=== PATIENT | female | born 1980 | race Caucasian/White ===

== ENCOUNTER → 2016-08-20 | Outpatient (CLI) | payer OTHER ==
--- NOTE | 2016-08-20 16:58 | US ---
Venous Doppler Study of Left Lower Extremity Clinical Indications: Left lower extremity swelling. Technique: High-frequency transducer was used for imaging and Doppler study of the deep veins of the leg from the upper calf to the groin. Pulsed Doppler and color Doppler were utilized, along with va rious maneuvers, to assess flow in the deep veins. Findings: The deep veins of the groin, thigh, knee, and upper calf are well displayed and are normal ly compressible. Doppler flow patterns are unremarkable. There is no evidence of deep venous thromb osis. There is normal compression of the greater saphenous vein without superficial thrombosis. The right common femoral vein is patent, competent, and compressible. Impression: No evidence of deep vein thrombosis in the left leg. A page was placed to Dr. Figueroa at time of completion of dictation. I am awaiting a return call.
== END ==
LOC: FIMAGING 15:51
PROVIDERS: ATTEND Obstetrics & Gynecology
DX: M79.89 Other specified soft tissue disorders (principal)

== ENCOUNTER 2016-08-30 05:30 | Inpatient (IN) | payer OTHER ==
[2016-08-30] MEDS ORDERED: LR 500 ML IV ONE (05:58)
[2016-08-30] MEDS ORDERED: ceFAZolin 2 GM/DEXTROSE 100 ML IV ONE ×2 (05:58→07:00)
[2016-08-30] MEDS ORDERED: CITRIC ACID/SODIUM CITRATE 30 ML UDCUP PO ONE (05:58)
[2016-08-30] MEDS ORDERED: LR 1,000 ML IV SCH (06:00)
[2016-08-30 06:41] LABS: % IMMATURE GRANULYOCYTES 0.4 % (0.0-1.1); ABSOLUTE IMMATURE GRANULOCYTES 0.03 10^3/uL (0.00-0.10); ADD DIFF? NO; ADD MORPH? NO; ADD SCAN? NO; ATYPICAL LYMPHOCYTE FLAG 0 (0-99); FRAGMENT RBC FLAG 20 (0-99); HEMATOCRIT 28.8 % (38.0-47.0); HEMOGLOBIN 8.5 g/dL (12.6-16.3); LEFT SHIFT FLG 0 (0-99); LIPEMIA HEMOLYSIS FLAG 70 (0-99); MEAN CELL HEMOGLOBIN CONCENTR. 29.5 g/dL (32.4-36.7); MEAN CELL VOLUME 71.1 fL (81.5-99.8); MEAN PLATELET VOLUME 11.4 fL (8.7-11.7); PLATELET CLUMPS FLAG 20 (0-99); PLATELET COUNT 298 10^3/uL (150-400); RED BLOOD CELL COUNT 4.05 10^6/uL (4.18-5.33); RED CELL DISTRIBUTION WIDTH 16.6 % (11.5-15.2)
[2016-08-30] MEDS ORDERED: morphINE PF 5 MG/10 ML INJ ONE (07:44)
[2016-08-30] MEDS ORDERED: LIDOCAINE 1% 30 ML SDV ONE (07:55)
[2016-08-30] MEDS ORDERED: MISOPROSTOL 200 MCG TAB ONE (07:56)
[2016-08-30] MEDS ORDERED: OXYTOCIN 10 UNIT/ML VIAL ONE (07:56)
[2016-08-30] MEDS ORDERED: fentaNYL 100 MCG/2 ML INJ ONE ×2 (08:26→08:40)
[2016-08-30] MEDS ORDERED: DOCUSATE SODIUM 100 MG CAP PO PRN (08:52)
[2016-08-30] MEDS ORDERED: SIMETHICONE 80 MG TAB CHEW PO PRN (08:52)
[2016-08-30] MEDS ORDERED: HYDROCODONE/APAP 5/325 TAB PO PRN (08:52)
[2016-08-30] MEDS ORDERED: PROMETHAZINE HCL 25 MG/ML INJ IVP PRN (08:52)
[2016-08-30] MEDS ORDERED: BISACODYL 10 MG SUPP PR PRN (08:53)
[2016-08-30] MEDS ORDERED: POLYETHYLENE GLYCOL 3350 17 GM PKT PO PRN (08:53)
[2016-08-30] MEDS ORDERED: MAGNESIUM HYDROXIDE 30 ML UDCUP PO PRN (08:53)
[2016-08-30] MEDS ORDERED: LACTULOSE 20 GM/30 ML UDCUP PO PRN (08:53)
--- NOTE | 2016-08-30 08:56 | OBPROC ---
- Delivery Pre-op Diagnoses: Primary C/S due to previous traumatic vaginal delivery Post-op Diagnoses: Primary C/S Procedure: Primary Surgeon: Teri Figueroa Nutrition Partner: Snehal Caldwell Anesthesiologist: Gerard Cody Medical Care Evaluation Specialist/TRACK GREASER: Shital Jim Anesthesia: Spinal Complications: None IV Fluid (ml): 1,300 EBL: 800 - Info Infant A Delivery Date: 08/30/16 Delivery Time: 08:24 Sex of Infant: Female Score (1 Min): 8 Score (5 Min): 8
[2016-08-30] MEDS ORDERED: PROPOFOL 200 MG/20 ML VIAL ONE (08:59)
[2016-08-30] MEDS ORDERED: MEPERIDINE 25 MG/ML SYR IVP PRN (09:09)
[2016-08-30] MEDS ORDERED: PHENYLEPHRINE HCL 100 MCG/ML SYR IVP PRN (09:09)
[2016-08-30] MEDS ORDERED: NALOXONE HCL 0.4 MG/ML INJ IVP PRN (09:09)
[2016-08-30] MEDS ORDERED: fentaNYL 100 MCG/2 ML INJ IVP PRN (09:09)
[2016-08-30] MEDS ORDERED: KETOROLAC 30 MG/1 ML SDV ONE (09:12)
[2016-08-30] MEDS: KETOROLAC 30 MG/1 ML SDV IVP SCH ×3 (09:14→22:30)
[2016-08-30] MEDS: SENNOSIDES/DOCUSATE SODIUM TAB PO SCH ×2 (09:26→22:30)
[2016-08-31] MEDS: KETOROLAC 30 MG/1 ML SDV IVP SCH (05:12)
--- NOTE | 2016-08-31 07:59 | SOAPPROG ---
SOAP Progress Note Assessment/Plan: Assessment: 35 y.o. s/p primary elective C/S post-op/ day #1. Recovering well. Incision CDI. Plan: STAT CBC this morning. Begin Iron BID. Routine post-op/ orders. 08/31/16 07:56 Subjective: Reports feeling well with good pain control and minimal vaginal bleeding. Incision with bandage in place is CDI. infant well. Appropriate mood and good support. Objective: Vital Signs Temp Pulse Resp BP Pulse Ox 36.9 C 82 18 99/61 L 93 08/31/16 05:16 08/31/16 05:16 08/31/16 05:16 08/31/16 05:16 08/31/16 01:00 Laboratory Results 08/30/16 06:29 08/30/16 08/31/16 09/01/16 05:59 05:59 05:59 Intake Total 3300 Output Total 1858 100 Balance 1442 -100 - Time Spent With Patient Time Spent With Patient: 20 minutes - Pending Discharge Pending Discharge Within 24 Hours: No Pending Discharge Within 48 Hours: Yes Pending Discharge Date: 09/02/16 Pending Discharge Time: 11:00 Physical Exam - Physical Exam General Appearance: WD/WN, alert, no apparent distress EENT: normal ENT inspection Neck: non-tender, full range of motion Respiratory: lungs clear, normal breath sounds Cardiac/Chest: regular rate, rhythm Abdomen: non-tender, soft Pelvic Exam: normal external exam Rectal: deferred Back: Normal inspection Skin: normal color, warm/dry Extremities: normal range of motion, non-tender Neuro/Psych: alert, normal mood/affect, oriented x 3 ICD10 Worksheet Patient Problems: Problems Problem Status Diagnosed care following delivery Acute - ICD10 Problem Qualifiers (1) care following delivery
[2016-08-31 10:07] LABS: % IMMATURE GRANULYOCYTES 0.4 % (0.0-1.1); ABSOLUTE IMMATURE GRANULOCYTES 0.02 10^3/uL (0.00-0.10); ADD DIFF? NO; ADD MORPH? YES; ADD SCAN? NO; ATYPICAL LYMPHOCYTE FLAG 0 (0-99); FRAGMENT RBC FLAG 20 (0-99); HEMATOCRIT 39.5 % (38.0-47.0); HEMOGLOBIN 11.2 g/dL (12.6-16.3); LEFT SHIFT FLG 0 (0-99); LIPEMIA HEMOLYSIS FLAG 70 (0-99); MEAN CELL HEMOGLOBIN 20.8 pg (27.9-34.1); MEAN CELL VOLUME 73.3 fL (81.5-99.8); MEAN PLATELET VOLUME 10.9 fL (8.7-11.7); PLATELET CLUMPS FLAG 0 (0-99); PLATELET COUNT 126 10^3/uL (150-400); RED BLOOD CELL COUNT 5.39 10^6/uL (4.18-5.33); RED CELL DISTRIBUTION WIDTH 17.3 % (11.5-15.2)
[2016-08-31 10:12] LABS: MEAN CELL HEMOGLOBIN CONCENTR. 28.4 g/dL (32.4-36.7)
[2016-08-31] MEDS: IRON POLYSAC/IRON HEME 28 MG TAB PO SCH ×2 (10:33→21:01)
[2016-08-31] MEDS: SENNOSIDES/DOCUSATE SODIUM TAB PO SCH ×2 (10:34→21:00)
[2016-08-31 10:50] LABS: ELLIPTOCYTES 1+; HYPOCHROMIA 2+; MICROCYTES 2+; PLATELET ESTIMATE ADEQUATE (ADEQ); POLYCHROMASIA 2+
[2016-08-31 10:51] LABS: ACANTHOCYTES 1+; SCHISTOCYTES 1+
[2016-08-31] MEDS: IBUPROFEN 600 MG TAB PO PRN ×2 (12:48→18:58)
[2016-08-31 15:45] LABS: % IMMATURE GRANULYOCYTES 0.5 % (0.0-1.1); ABSOLUTE IMMATURE GRANULOCYTES 0.05 10^3/uL (0.00-0.10); ADD DIFF? NO; ADD MORPH? YES; ADD SCAN? NO; ATYPICAL LYMPHOCYTE FLAG 20 (0-99); FRAGMENT RBC FLAG 20 (0-99); HEMATOCRIT 21.2 % (38.0-47.0); LEFT SHIFT FLG 0 (0-99); LIPEMIA HEMOLYSIS FLAG 70 (0-99); MEAN CELL HEMOGLOBIN 21.6 pg (27.9-34.1); MEAN CELL HEMOGLOBIN CONCENTR. 29.2 g/dL (32.4-36.7); MEAN CELL VOLUME 73.9 fL (81.5-99.8); MEAN PLATELET VOLUME 11.1 fL (8.7-11.7); PLATELET CLUMPS FLAG 40 (0-99); PLATELET COUNT 217 10^3/uL (150-400); RED BLOOD CELL COUNT 2.87 10^6/uL (4.18-5.33); RED CELL DISTRIBUTION WIDTH 16.5 % (11.5-15.2)
[2016-08-31 15:47] LABS: HEMOGLOBIN 6.2 g/dL (12.6-16.3)
[2016-08-31 16:14] LABS: POLYCHROMASIA 2+
[2016-08-31 16:15] LABS: PLATELET ESTIMATE ADEQUATE (ADEQ)
[2016-08-31 16:16] LABS: HYPOCHROMIA 2+; MICROCYTES 2+
[2016-08-31 16:17] LABS: ELLIPTOCYTES 1+
[2016-08-31 22:31] VITALS: RESP 16
[2016-09-01] MEDS: IBUPROFEN 600 MG TAB PO PRN ×2 (01:03→08:13)
[2016-09-01 05:30] LABS: % IMMATURE GRANULYOCYTES 0.7 % (0.0-1.1); ABSOLUTE IMMATURE GRANULOCYTES 0.06 10^3/uL (0.00-0.10); ADD DIFF? NO; ADD MORPH? YES; ADD SCAN? NO; ATYPICAL LYMPHOCYTE FLAG 0 (0-99); FRAGMENT RBC FLAG 20 (0-99); HEMATOCRIT 21.2 % (38.0-47.0); LEFT SHIFT FLG 0 (0-99); LIPEMIA HEMOLYSIS FLAG 70 (0-99); MEAN CELL HEMOGLOBIN 21.1 pg (27.9-34.1); MEAN CELL VOLUME 73.4 fL (81.5-99.8); MEAN PLATELET VOLUME 11.2 fL (8.7-11.7); PLATELET CLUMPS FLAG 0 (0-99); PLATELET COUNT 201 10^3/uL (150-400); RED BLOOD CELL COUNT 2.89 10^6/uL (4.18-5.33); RED CELL DISTRIBUTION WIDTH 16.5 % (11.5-15.2)
[2016-09-01 05:39] LABS: HEMOGLOBIN 6.1 g/dL (12.6-16.3); MEAN CELL HEMOGLOBIN CONCENTR. 28.8 g/dL (32.4-36.7)
[2016-09-01 06:23] LABS: HYPOCHROMIA 2+; MICROCYTES 2+; PLATELET ESTIMATE ADEQUATE (ADEQ); POLYCHROMASIA 1+
[2016-09-01] MEDS: IRON POLYSAC/IRON HEME 28 MG TAB PO SCH (08:13)
[2016-09-01] MEDS: SENNOSIDES/DOCUSATE SODIUM TAB PO SCH (08:13)
--- NOTE | 2016-09-01 08:35 | OBGCSDC ---
General Delivery Information - General Info : 2 Para: 2 Delivery Date: 08/30/16 Delivery Time: 08:24 Delivery Physician/CNM: Teri Figueroa Twisting Frame Fixer: Snehal Caldwell Admission Date: 08/30/16 Labs: Patient ABO/Rh O POSITIVE 08/30/16 06:29 Hct 21.2 % (38.0-47.0) L 09/01/16 04:50 - Frontier Info A Sex of Infant: Female Score (1 Min): 8 Score (5 Min): 8 - Delivery IUP (Weeks): 39 weeks Number of Prior Sections: 0 Indications for Current Section: Other (Specify) Procedures: LTCS Intra-op Complications: None EBL: 800 Anesthesia: Spinal Discharge Information - Discharge Information Discharge Medications: Ibuprofen, Vitamins, Vicodin Complications: anemia Condition: Good Instruction/Follow Up: Two Weeks Discharge Physician/CNM: Snehal Caldwell Discharge Date: 09/01/16 Dictated: No
[2016-09-01 11:40] VITALS: BP 110/67; PULSE 84; TEMP 97.9; O2SAT 100
--- NOTE | 2016-09-01 15:27 | GOP ---
[f rep st] OPERATIVE REPORT DATE OF OPERATION: 08/30/2016 SURGEON: Teri Figueroa MD POWER BALLAST MACHINE OPERATOR: Snehal Caldwell CNM ANESTHESIA: Spinal. PREOPERATIVE DIAGNOSIS: 1. Intrauterine at 39 weeks and 1 day estimated gestational age. 2. History of prior severe vaginal laceration requiring surgical repair. POSTOPERATIVE DIAGNOSIS: 1. Intrauterine at 39 weeks and 1 day estimated gestational age. 2. History of prior severe vaginal laceration requiring surgical repair. PROCEDURE PERFORMED: Primary low transverse section. FINDINGS: 1. Delivered a female infant weighing 2930 g with Apgars of 8 and 8 at 0824 hours. 2. Normal uterus, fallopian tubes, and ovaries bilaterally. SPECIMENS: None. ESTIMATED BLOOD LOSS: 800 cc. INDICATIONS: Patient is a 35-year-old 2, para 1, female with history of a severe vaginal lac eration with her last delivery that required an interval surgical repair. She was offered, and she d esired to proceed with, a primary delivery. DESCRIPTION OF PROCEDURE: The patient was taken to the operating room, where spinal anesthesia was f ound adequate. Patient was prepared and draped in a normal sterile fashion in a dorsal supine positi on with a left tilt. After confirmation of adequate anesthesia, a low transverse skin incision was m taurus and carried down to the level of the fascia in the usual Pfannenstiel method. The incision was i ncised and dissected using Pfannenstiel technique. The peritoneal cavity was opened bluntly and stre tched open. A bladder blade was placed. An incision was made in the vesicouterine peritoneum and ex tended laterally and dissected away digitally. A low transverse uterine incision was made and extended digitally. The baby was delivered atraumatic ally, and noted to have a spontaneous cry. The cord was doubly clamped and cut, and the baby was hill ded off to the waiting nurse practitioner. The placenta was delivered with uterine massage and noted to be intact. The uterus was exteriorized on the maternal abdomen and wiped with a dry lap sponge to remove all residual membranes. The uterine incision was closed with a running locked stit ch of 0 Monocryl. A second layer was placed for imbrication using same suture. The uterine tone was excellent. The posterior cul-de-sac was irrigated with copious amounts of normal saline and noted t o be clear. The uterus was placed back in the maternal abdomen and gutters were wiped with moist lap sponges bilaterally. The uterine incision was reexamined closely, and hemostasis assured. The rect us muscle surfaces and fascial surfaces were examined closely, and hemostasis was obtained with the u se of the Bovie. The fascia was closed with a running nonlocked stitch of #1 PDS. The subcutaneous tissue was irrigated with copious amounts of normal saline, and hemostasis obtained with the use of t he Bovie. The subcutaneous tissue was reapproximated with interrupted stitches of 2-0 Vicryl, and th e skin was then closed with a subcuticular stitch of 4-0 Monocryl. Steri-Strips and a bandage dressi ng was placed. A vaginal Crede exam was performed with dark blood noted, and the uterus was firm. All sponge, lap, and needle counts correct x2. Patient transferred to PACU in stable and good condition. COMPLICATIONS: None. DRAINS: Huffman to gravity. IV FLUIDS: 1300. URINE OUTPUT: 50 cc. /[id number]/MODL
== END 2016-09-01 10:30 | disposition home or self-care (01) | DRG 766 ==
LOC: FLD 05:30 → FOB 11:01
PROVIDERS: ADMIT Obstetrics & Gynecology; ATTEND Obstetrics & Gynecology
PROC: 10D00Z1 Extraction of Products of Conception, Low, Open Approach (ICD-10-PCS; principal; 2016-08-30)
DX: O34.63 Maternal care for abnormality of vagina, third trimester (principal); O09.523 Supervision of elderly multigravida, third trimester; Z37.0 Single live birth; Z3A.39 39 weeks gestation of pregnancy
CPT/HCPCS: J0690; J1885; J2274; J2704; J3010